=== PATIENT | male | born 1960 ===

== ENCOUNTER 2024-08-13 06:38 | Day surgery (SDC) | payer MEDICARE, OTHER, SELFPAY ==
[2024-08-13] VITALS (11 sets, daily range): BP systolic 106–148; BP diastolic 75–91; BMI 40.5
[2024-08-13] MEDS: TYLENOL 1000 MG PO (11:11)
[2024-08-13] MEDS: CELEBREX 200 MG PO (11:17)
[2024-08-13 11:57] LABS: Hematocrit 40.9 % (39.0-52.0); Hemoglobin 14.1 g/dL (13.0-18.0); Mean Corp Hgb Conc. 34.5 g/dL (33.0-37.0); Mean Corpuscular Hgb 29.7 pg (27.0-31.0); Mean Corpuscular Volume 86.3 fL (80.0-94.0); Mean Platelet Volume 10.8 fL (7.4-10.4); Platelet Count 179 10^3/uL (130-400); Red Blood Cell Count 4.74 10^6/uL (4.70-6.10); Red Cell Dist. Width 12.6 % (11.5-14.5); White Blood Cell Count 7.1 10^3/uL (4.8-10.8)
[2024-08-13 12:33] LABS: Blood Urea Nitrogen 11 mg/dl (9-20); Calcium 9.3 mg/dl (8.4-10.2); Carbon Dioxide 27 mmol/L (22-30); Chloride 105 mmol/L (98-107); Estimated Creatinine Clearance 108 ml/min; Glucose 98 mg/dl (70-99); Potassium 3.4 mmol/L (3.5-5.1); Sodium 142 mmol/L (135-145); eGFR > 60.00
[2024-08-13] MEDS: SUBLIMAZE 50 MCG IV ×2 (15:47→16:10)
[2024-08-13] MEDS: SUBLIMAZE 25 MCG IV (16:27)
[2024-08-13] MEDS: ROXICODONE 5 MG PO (17:13)
== END 2024-08-13 17:38 | disposition home or self-care (01) ==
LOC: SDS 06:38
PROVIDERS: ATTENDING PHYSICIAN Orthopaedic Surgery Hand Surgery
PROC: 0RNK4ZZ Release Left Shoulder Joint, Percutaneous Endoscopic Approach (ICD-10-PCS; 2024-08-13)
PROC: 01N50ZZ Release Median Nerve, Open Approach (ICD-10-PCS; 2024-08-13)
DX: M75.102 Unspecified rotator cuff tear or rupture of left shoulder, not specified as traumatic (principal); M75.42 Impingement syndrome of left shoulder; M75.22 Bicipital tendinitis, left shoulder; G56.00 Carpal tunnel syndrome, unspecified upper limb
CPT/HCPCS: 29827; 29826; 29823; 64721; 80048; 85027; 93005